=== PATIENT | male | born 1960 | race Caucasian/White ===

== ENCOUNTER → 2017-01-10 | Outpatient (CLI) | payer OTHER ==
--- NOTE | 2017-01-10 12:24 | RADRPT ---
PROCEDURE: XR Left Hip and pelvis. CLINICAL INDICATION: Left hip pain. Pelvic pain. TECHNIQUE: Two views. Frontal pelvis and lateral left hip. COMPARISON: No prior studies are available for comparison. FINDINGS: There is no fracture or dislocation. The soft tissues are normal. Articular surfaces are intact. There is no lytic or blastic lesion. The upper pelvis is not included on the images. IMPRESSION: 1. Normal images of the left hip and pelvis. RPTAT: QQ .Yandel Martin MD, MD Date Time Electronically viewed and signed by .Yandel Martin MD, MD on 01/10/2017 12:24 .R/
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
== END | disposition home or self-care (01) ==
LOC: HKI 11:30
DX: M70.62 Trochanteric bursitis, left hip (principal); M25.852 Other specified joint disorders, left hip; M16.11 Unilateral primary osteoarthritis, right hip; M51.36 Other intervertebral disc degeneration, lumbar region; R63.4 Abnormal weight loss; I95.9 Hypotension, unspecified; R42 Dizziness and giddiness; Z82.3 Family history of stroke; Z83.3 Family history of diabetes mellitus; Z80.9 Family history of malignant neoplasm, unspecified
CPT/HCPCS: 20610; 73502; Z7500; Z7610; G0463